=== PATIENT | female | born 1955 | race Caucasian/White ===

== ENCOUNTER 2018-08-06 08:32 | Emergency (ER) | payer BC ==
[~2018-08-06] VITALS: Ht 167.6 cm; Wt 59.9 kg
[2018-08-06 08:36] VITALS: BP_SYST 141
--- NOTE | 2018-08-06 08:41 | NUR ---
Pt s/p trip and fall and hit head on the edge of a crate this past Tuesday. Denies LOC. Hematoma noted above right brow, eccymosis surrounding right eye.
--- NOTE | 2018-08-06 08:50 | NUR ---
Dr. Camacho at bedside.
--- NOTE | 2018-08-06 09:30 | NUR ---
No needs verbalized at this time.
[2018-08-06] MEDS ORDERED: DIPH-TET-PERTUS Vaccine 0.5 ML VIAL (ADACEL) I.M. ONE (10:00)
[2018-08-06 10:05] VITALS: BP_SYST 136
--- NOTE | 2018-08-06 10:05 | NUR ---
Patient given written and verbal discharge instructions and verbalizes understanding. ER MD discussed with patient the results and treatment provided. Patient in stable condition. ID arm band removed. No Rx given. Patient educated on pain management and to follow up with PMD. Pain Scale 1/10. Opportunity for questions provided and answered. Medication side effect fact sheet provided.
== END 2018-08-06 10:05 | disposition home or self-care (01) ==
LOC: SED 08:32
DX: S00.03XA Contusion of scalp, initial encounter (principal); S05.11XA Contusion of eyeball and orbital tissues, right eye, initial encounter; R03.0 Elevated blood-pressure reading, without diagnosis of hypertension; Z88.0 Allergy status to penicillin; W01.0XXA Fall on same level from slipping, tripping and stumbling without subsequent striking against object, initial encounter; Y93.89 Activity, other specified; Y92.219 Unspecified school as the place of occurrence of the external cause; Y99.8 Other external cause status
CPT/HCPCS: 90715; 99283